=== PATIENT | male | born 1930 | race Caucasian/White ===

== ENCOUNTER 2019-03-28 12:08 | Observation (INO) | payer MEDICARE ==
[~2019-03-28 12:08] MED LIST: Buffered Lidocaine 1% SYRIN* 1 ML/SYRINGE INTRADERM ONE; Lactated Ringers 1000 ML Bag* 1,000 ML IV SCH
[2019-03-28] MEDS ORDERED: Buffered Lidocaine 1% SYRIN* 1 ML/SYRINGE INTRADERM ONE (14:50)
[2019-03-28] MEDS ORDERED: ceFAZolin 1 GM ADVAN(*) 1 GM ADDV.VIAL IVPB ONE (15:46)
[2019-03-28] MEDS ORDERED: Midazolam* 1 MG/ML 5 ML VIAL (5 MG) ONE (15:55)
[2019-03-28] MEDS ORDERED: fentaNYL* 50 MCG/ML 2 ML VIAL (100 MCG VIAL) ONE (16:10)
[2019-03-28] MEDS ORDERED: Naloxone* 0.4 MG/ML 1 ML VIAL IV PRN (16:25)
[2019-03-28] MEDS ORDERED: Ondansetron INJ* 2 MG/ML VIAL IV PRN ×2 (16:25→17:34)
[2019-03-28] MEDS ORDERED: fentaNYL* 50 MCG/ML 2 ML VIAL (100 MCG VIAL) IV PRN (16:25)
[2019-03-28] MEDS ORDERED: Midazolam* 1 MG/ML 2 ML VIAL (2 MG) ONE (16:31)
[2019-03-28] MEDS ORDERED: Latanoprost 0.005%* 2.5 ml BTL BOTH EYES SCH (18:00)
[2019-03-28] MEDS ORDERED: Pantoprazole TAB * 40 MG TAB PO SCH ×2 (18:00→23:00)
[2019-03-28] MEDS: NS 0.9% 1000 ML** 1,000 ML IV SCH (19:37)
--- NOTE | 2019-03-28 21:20 | HP ---
CC: Dr. Molina; Dr. Weathers * HISTORY AND PHYSICAL: DATE OF ADMISSION: 03/28/19 PROVIDER: Kay Mckoy NP. PRIMARY CARE PROVIDER: Dr. Weathers. ATTENDING PHYSICIAN WHILE IN THE HOSPITAL: Adilson Jeronimo MD * (dictated by Kay Mckoy NP). CHIEF COMPLAINT: Postop PEG tube placement. HISTORY OF PRESENT ILLNESS: Mr. Cabral is an 88-year-old male with a past medical history significant for aortic stenosis, paroxysmal atrial fibrillation , degenerative disk disease, and anemia, who presented to [facility] [place] an elective PEG tube placement with Dr. Molina. In brief, the patient has had difficulty with swallowing x4 years, has had a 50-pound weight loss over the past 4 years and due to the difficulty swallowing has opted for a PEG tube placement. Preoperatively, the patient denies any fevers, chills, chest pain or edema. Denies any cough, hemoptysis, or shortness of breath. No nausea, vomiting, diarrhea, or abdominal pain. Denies any gross hematuria or dysuria. Denies any focal weakness, sensory loss, or visual complaints. He does complain of difficulty swallowing. Denies any arthralgias, myalgias, rashes, lesions, or open sores. Due to the patient's difficulty swallowing and continued weight loss, the patient opted for feeding tube placement to supplement his nutrition. Hospital Medicine was asked to admit to observe the patient overnight after anesthesia. PAST MEDICAL HISTORY: Significant for: 1. Aortic stenosis. 2. Paroxysmal atrial fibrillation. 3. Degenerative disk disease. 4. Anemia. PAST SURGICAL HISTORY: 1. Left knee scope. 2. Back surgery. 3. Hernia. 4. Eye surgery. 5. Aortic valve replacement. 6. Cervical spine surgery. HOME MEDICATIONS: Include: 1. Aspirin 81 mg p.o. daily. 2. Latanoprost 0.005%. 3. Coumadin 3 mg p.o. daily. 4. Protonix 40 mg p.o. daily. 5. Metoprolol 50 mg p.o. daily. 6. Iron 325 mg p.o. daily. ALLERGIES: No known drug allergies. FAMILY HISTORY: Brother with a stroke, father with diabetes. Sister with colon cancer. Brother with prostate cancer. SOCIAL HISTORY: The patient quit smoking in 1950. He smoked 2 to 3 years. Reports occasional alcohol use. Denies any illicit drug use. He is a retired elian. He lives with his . Surrogate decision maker in the event he is unable to make his own decision is his . He is a full code. REVIEW OF SYSTEMS: A 14-point review of systems completed, all pertinent positives were mentioned in the HPI, otherwise were negative. PHYSICAL EXAMINATION GENERAL: At this time, Mr. Cabral is an 88-year-old male. He is alert and oriented, resting on the stretcher in PACU. He has no complaints. He is in no acute distress. VITAL SIGNS: Blood pressure 129/78, heart rate 71, respirations are 18, O2 saturation 100%, temperature was 97.3. HEENT: Head is atraumatic, normocephalic. Eyes: EOMs are intact. Sclerae anicteric and not pale. Oral mucosa appeared to be moist. NECK: Supple. LUNGS: Clear to auscultation bilaterally. No wheezes, rales, or rhonchi. CARDIAC: S1, S2. Regular rate and rhythm. No rubs or gallops. ABDOMEN: Soft and nontender. Bowel sounds are present x4. EXTREMITIES: He is able to move all 4 extremities with 5/5 strength. There is no clubbing or cyanosis. Pedal pulses are +2 bilaterally. NEUROLOGIC: He is awake, alert, and oriented x3. Speech is clear. Thought process is intact. There are no gross focal deficits. SKIN: Intact. DIAGNOSTIC STUDIES/LAB DATA: He had CBC from 03/26/19, WBCs were 4.9, RBCs 4.23, hemoglobin 13.3, hematocrit 39, platelet count was 346. INR was 1.73. Sodium 142, potassium 4.3, chloride 106, carbon dioxide was 31, anion gap 5, BUN 9, creatinine 0.71, total bilirubin 0.70. AST was 12, ALT was 6, alkaline phosphatase 56. TSH 1.49. Urine on 03/21/19 was within normal limits with the exception of ketones were trace and ascorbic acid was positive. ASSESSMENT AND PLAN: Mr. Cabral is an 88-year-old male with a past medical history significant for atrial fibrillation, aortic stenosis, degenerative disk disease, and anemia, who presented to [facility] for an elective PEG tube placement with Dr. Molina. He will be placed under observation for status post PEG tube placement, manage diet, and management of PEG tube per Dr. Molina. 1. Status post PEG tube placement. Management per GI. Patient and his will need post-op teaching on care and management of the PEG tube. 2. Atrial fibrillation. He should continue on his metoprolol 50 mg p.o. daily. The patient can resume his Coumadin when advised by Dr. Molina. Should continue on aspirin 81 mg p.o. daily. 3. Acid reflux. The patient should continue on pantoprazole 40 mg p.o. daily. 4. FEN: He is n.p.o. for tonight. He can advance to clear liquids in the a.m. per Dr. Molina. 5. Code status is full code. 6. DVT prophylaxis: I will place him on SCDs. TIME SPENT: Time spent on this admission was 60 minutes, greater than half that time was spent at the bedside reviewing events leading thus far to his hospitalization, performing physical exam, and reviewing my plan of care. I have discussed this with my attending Dr. Adilson Jeronimo; he is in agreement with my plan. KAY MCKOY, ROD GREASER [id number]/[facility] #: [id number] FARRUKH
--- NOTE | 2019-03-28 21:47 | PRO ---
DATE: 03/28/19 - ROOM #351 REFERRING PHYSICIAN: Joo Weathers, , Sparks; Gokul Beckham * PROCEDURE: Upper gastrointestinal endoscopy with anesthesia assistance and percutaneous gastrostomy. 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 It is felt that he does not have a neurologic cause for cricopharyngeal dysphagia, but a structural one. He is losing weight and gastrostomy feedings are requested. He will be having a third or fourth opinion from ENT at [place]. ENDOSCOPIST: Dr. Cornejo. ANESTHESIA: Moderate anesthesia care per Dr. Stockton. MEDICATIONS: He received IV sedation. Ancef 1 g was given preprocedure. FINDINGS: He was positioned on his back. The lights were dimmed. Upper endoscopy was performed. Larynx - normal symmetric views from above cords. Esophagus - difficult entry through the cricopharyngeus. It was difficult to define the confluence of folds that created the stricture. Once that cleft was identified, the diagnostic scope slid through opposed folds with ease. No stretch was required formally. The mid esophagus did appear a little bit narrow , but a smooth tube. There were no erosions. EG junction was at 39. Stomach - generally normal mucosa and normal rugal folds. Translumination was easily identified and finger indentation quite reliable just slightly to the right of midline about 5 cm above the umbilicus. Duodenum - the pylorus, bulb, and 2nd through 4th portions appear normal. The scope was pulled back into the gastric lumen and inflation done. The skin was anesthetized with 1% lidocaine. A horizontal 2 cm incision was made. A trocar was introduced into the gastric lumen and grasped with a snare. Given the cricopharyngeal stricture, a 14 Swedish tube was used and inserted in a standard fashion. There was no difficulty. An endoscopic recheck showed no bleeding from the stomach. Once again, the cricopharyngeus was difficult to traverse with the diagnostic scope. IMPRESSION: 1. Cricopharyngeal stricture - refractory. 2. Normal stomach. 3. Status post percutaneous gastroscopy - feedings will begin in the morning. [id number]/[facility] #: [id number] [facility]
[2019-03-29 06:05] LABS: ABS Eosinophils 0.2 10^3/ul (0-0.6); ABS Lymphocytes 0.6 10^3/ul (1.0-4.8); ABS Monocytes 0.5 10^3/ul (0-0.8); ABS Neutrophils 5.9 10^3/ul (1.5-7.7); Eosinophil % 2.8 %; Hematocrit 35 % (42-52); Hemoglobin 11.8 g/dL (14.0-18.0); Lymphocyte % 8.8 %; Mean Corpuscular HGB Conc 34 g/dL (31-36); Mean Corpuscular Hemoglobin 31 pg (27-31); Mean Corpuscular Volume 93 fL (80-94); Platelet Count 251 10^3/uL (150-450); Red Blood Count 3.76 10^6 /uL (4.18-5.48); Red Cell Distribution Width 14 % (10-15); White Blood Count 7.2 10^3/uL (3.5-10.8)
[2019-03-29 06:29] LABS: BUN/Creatinine Ratio 11.7 (8-20); Calcium 7.7 mg/dL (8.6-10.3); EGFR African American 154.2 (>60); EGFR Non-African American 127.4 (>60); Potassium 3.5 mmol/L (3.5-5.0)
[2019-03-29] MEDS: NS 0.9% 1000 ML** 1,000 ML IV SCH (09:13)
[2019-03-29 11:18] VITALS: BP 130/58
[2019-03-29] MEDS ORDERED: Metoprolol Succinate XL TAB* 50 MG PO SCH (18:00)
--- NOTE | 2019-03-30 00:22 | DS ---
DISCHARGE SUMMARY: DATE OF ADMISSION: 03/28/19 DATE OF DISCHARGE: 03/29/19 ADMITTING PROVIDER: Kay Mckoy NP PRIMARY CARE PROVIDER: Dr. Joo Weathers. CONSULTING FUR GLOSSER: Dr. Giancarlo Molina. ATTENDING PHYSICIAN ON DISCHARGE: Charli Silva MD. CHIEF COMPLAINT: Dysphagia. 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 HISTORY OF PRESENT ILLNESS/HOSPITAL COURSE: Pacheco Cabral is an 88-year-old male with a past medical history of progressive weight loss. He has been evaluated by numerous physicians:Gastroenterology ,ENT, and Neurology for dysphagia. It has been suspected to be of anatomic/structural origin. 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 Dr. Molina found difficult entry through the cricopharyngeus given difficulty defining the confluence of the folds creating the stricture, but once identified the scope passed with ease and no stretch was required. There were no erosions. PEG tube was placed without complications and was functioning well. On hospital day #2, he got PEG tube teaching and was seen by a lead blender who recommended that the patient slowly titrate up to 7 cans of Jevity 1.2 calorie a day, along with 24 ounces total of water flush a day. He was cleared for discharge and he has planned additional third or fourth opinion at [facility]. DISCHARGE MEDICATIONS: Included: 1. Aspirin 81 mg p.o. daily. 2. Ferrous sulfate 325 mg p.o. q.p.m. 3. Latanoprost 0.005% eye drops 1 drop to both eyes q.p.m. 4. Metoprolol succinate 50 mg p.o. q.p.m. 5. Pantoprazole 40 mg p.o. daily. 6. Warfarin 3 mg on Sunday, Sunday , Sunday , Sunday, and Sunday, and 4 mg on Sunday and . DISPOSITION: Home. CONDITION: Stable. FOLLOW UP: Please follow up with Dr. Joo Weathers and with [facility] ENT. DIET: He will continue to attempt trial of po food intake though the majority of his calories will likely be due to the Jevity 1.2 calorie (7 cans daily) TIME SPENT ON DISCHARGE: 35 minutes. [id number]/[facility] #: [id number] MTDWon
== END 2019-03-29 15:15 | disposition home or self-care (01) ==
LOC: OR 12:08 → SSU 17:34
PROVIDERS: ADMIT Internal Medicine Gastroenterology; ATTEND Internal Medicine
DX: R13.10 Dysphagia, unspecified (principal); I35.0 Nonrheumatic aortic (valve) stenosis; I48.0 Paroxysmal atrial fibrillation; Z79.82 Long term (current) use of aspirin; D64.9 Anemia, unspecified; K21.9 Gastro-esophageal reflux disease without esophagitis; Z95.4 Presence of other heart-valve replacement; M51.34 Other intervertebral disc degeneration, thoracic region; Z87.891 Personal history of nicotine dependence
CPT/HCPCS: 36415; 80048; 85025; A9270-GY; G0378; J0690; J2250; J3010

== ENCOUNTER 2019-05-06 12:27 | Day surgery (SDC) | payer MEDICARE ==
[2019-05-06] MEDS ORDERED: Midazolam* 1 MG/ML 2 ML VIAL (2 MG) ONE (14:50)
[2019-05-06] MEDS ORDERED: Ondansetron INJ* 2 MG/ML VIAL IV PRN (14:57)
[2019-05-06] MEDS ORDERED: Naloxone* 0.4 MG/ML 1 ML VIAL IV PRN (14:57)
[2019-05-06] MEDS ORDERED: Phenylephrine 40 MCG/ML SYRINGE ONE (15:50)
[2019-05-06] MEDS ORDERED: Propofol* 500 MG/50 ML BTL ONE (15:50)
[2019-05-06 16:53] VITALS: BP 144/62
--- NOTE | 2019-05-06 22:38 | PRO ---
DATE: 05/06/19 [facility] REFERRING PHYSICIANS: Walt Moss.* PROCEDURE: Upper gastrointestinal endoscopy through to duodenal bulb and Savary dilation of cricopharyngeal and mid esophageal strictures. INDICATION: This 88-year-old man with cricopharyngeal stricture that has undergone numerous treatments over the last 4 years comes in for an attempt at symptomatic relief, as he awaits third or fourth opinion consult at [facility] ENT Department. Six weeks ago, he underwent PEG placement with a pediatric PEG 14-Nigerien. He has been getting down 7 cans a day of tube feeding since then. He has been having increasing difficulty with oral pureed foods and especially his pills, though he does get pills down periodically. Previous treatments have included a cricopharyngeal myotomy and Botox injections on several occasions. Records from the [place] [facility] Department documented use of a 16- mm Savary on a couple of occasions. Informed consent was obtained. Anesthesia assistance was requested. ENDOSCOPIST: Giancarlo Molina MD ANESTHESIA: Ana Mills MD FINDINGS: He is a slender older man, quite alert, and precise in his communication. He is positioned on his back tilted up 30 degrees. EGD: Larynx - symmetric views from above the cords. Views were taken as one approached the cricopharyngeus, but there seemed to be some restriction. The diagnostic scope popped through. Esophagus - smooth mucosa and a filmy delicate mucosal stricture was seen at about 30 cm. There were no peptic changes or inflammatory signs. The EG junction at 40 had a mildly loose EG junction. Stomach - PEG tube present and no other abnormality. Duodenum - normal. The Savary wire was left in the stomach and then sequentially 12.8, 14 and 15- mm dilators were passed over the wire with an endoscopic recheck between each one. While a slight opening of the cricopharyngeus seemed to be evident, there was no mucosal split or any bruising seen. There was a split at the 30-cm lilia with the 14-mm dilator. After the Savary dilations due to malfunction of the 16-mm dilator, a through- the-scope dilator was placed across the cricopharyngeus and inflated to 4.5 atmospheres or 16.5 mm. Again, a visual impression of a more capacious channel was seen, but no split. Procedure was terminated. IMPRESSION: 1. Status post percutaneous endoscopic gastrostomy tube - appears appropriate. 2. Mid esophageal mild stricture - dilated to 16mm 3. Cricopharyngeal dysfunction - dilated to 16 mm or 16.5 mm and a symptomatic response awaited. It is possible larger dilators could be chosen or the patient could be instructed on self dilation. 4. B12 deficiency - he is requested to obtain a prescription for a supplement to be given transmucosally without having to swallow pills. [id number]/[facility] #: [id number] [facility]
== END 2019-05-06 16:53 | disposition home or self-care (01) ==
LOC: OR 12:27
PROVIDERS: ATTEND Internal Medicine Gastroenterology
DX: K22.2 Esophageal obstruction (principal); R13.14 Dysphagia, pharyngoesophageal phase; Z93.1 Gastrostomy status; I35.0 Nonrheumatic aortic (valve) stenosis; I48.0 Paroxysmal atrial fibrillation; Z79.01 Long term (current) use of anticoagulants; Z87.891 Personal history of nicotine dependence; E78.5 Hyperlipidemia, unspecified; M50.30 Other cervical disc degeneration, unspecified cervical region
CPT/HCPCS: J2250; J2704